=== PATIENT | female | born 1955 | race African-American/Black ===

== ENCOUNTER 2023-12-14 20:37 | Emergency (ER) | payer BC, MEDICAID ==
[~2023-12-14] VITALS: Ht 162.6 cm; Wt 53.0 kg
[2023-12-14] MEDS: ASPIRIN 325MG EC TABLET PO ONE
[2023-12-14 20:40] VITALS: BP 135/93; PULSE 66; RESP 18; TEMP 98.9; O2SAT 95
[2023-12-14] MEDS: FUROSEMIDE 40MG/4ML VIAL IVP ONE (23:15)
[2023-12-14 23:44] LABS: BASOPHILS % 0.4 % (0.0-2.0); EOSINOPHILS % 2.6 % (0.0-5.0); HEMATOCRIT. 41.6 % (36.0-48.0); HEMOGLOBIN. 13.8 g/dL (12.0-16.0); LYMPHOCYTES % 20.6 % (20.0-50.0); MEAN CORPUSCULAR HEMOGLOBIN 32.4 pg (28.0-32.0); MEAN CORPUSCULAR HGB CONC 33.2 g/dL (31.0-37.0); MEAN CORPUSCULAR VOLUME 97.5 fL (81.0-99.0); MEAN PLATELET VOLUME 7.5 fl (7.4-10.4); MONOCYTES % 9.2 % (2.0-8.0); NEUTROPHILS % 67.2 % (40.0-76.0); PLATELET 365 x1000/uL (130-400); RED BLOOD CELL COUNT 4.27 mill/uL (4.2-5.4); RED CELL DISTRIBUTION WIDTH 15.1 % (11.6-14.6)
[2023-12-14 23:50] LABS: POTASSIUM 4.4 mEq/L (3.5-5.1)
[2023-12-14 23:56] LABS: CREATININE 1.5 mg/dL (0.6-1.0)
[2023-12-15 01:04] LABS: TROPONIN I HIGH SENSITIVITY 7 ng/L (3.0-34)
[2023-12-15] MEDS ORDERED: P50 MT (02:15)
[2023-12-15] MEDS ORDERED: ALBU90AE INH (02:15)
[2023-12-15] MEDS ORDERED: TOPUD MT (02:15)
[2023-12-15] MEDS ORDERED: DEXT30SU17 MT (02:15)
[2023-12-15] MEDS: ACETAMINOPHEN 325MG TABLET PO ONE (02:29)
[2023-12-15] MEDS: IPRATROPIUM/ALBUTEROL 0.5-3(2.5)MG/3ML NEB HHN ONE (02:30)
[2023-12-15] MEDS: PREDNISONE 20MG TABLET PO ONE (03:05)
[2023-12-17] MEDS ORDERED: HYDR25TA MT (11:13)
[2023-12-17] MEDS ORDERED: ASPI-1497 MT (11:13)
[2023-12-17] MEDS ORDERED: OMEP20CA14 MT (11:14)
== END 2023-12-15 03:14 | disposition home or self-care (01) ==
LOC: ER 20:37
DX: I11.0 Hypertensive heart disease with heart failure (principal); I50.9 Heart failure, unspecified; E11.9 Type 2 diabetes mellitus without complications; J44.1 Chronic obstructive pulmonary disease with (acute) exacerbation; Z88.0 Allergy status to penicillin; Z79.899 Other long term (current) drug therapy
CPT/HCPCS: 99285; 71045; 80048; 83880; 85025; 36415 ×2; 93005; 84484; J7512; J1940

== ENCOUNTER 2025-01-15 15:27 | Emergency (ER) | payer BC, MEDICAID ==
[~2025-01-15] VITALS: Ht 165.1 cm; Wt 55.0 kg
[~2025-01-15 15:27] MED LIST: ALBU90AE INH; ASPI-1497 MT; HYDR25TA MT; OMEP20CA14 MT; TOPUD MT
[2025-01-15 15:28] VITALS: O2SAT 95
[2025-01-15] MEDS: ACETAZOLAMIDE 500MG ER CAPSULE PO ONE (17:43)
[2025-01-15] MEDS: BRIMONIDINE 0.2% OPHTH DROPS 5ML RIGHTEYE ONE (17:43)
[2025-01-15] MEDS: TIMOLOL MALEATE 0.5% OPHTH DROPS 5ML RIGHTEYE SCH (17:43)
[2025-01-15] MEDS: TETRACAINE 0.5% OPHTH DROPS 4ML RIGHTEYE ONE (17:43)
[2025-01-15] MEDS: PILOCARPINE HCL 4% OPHTH DROPS 15ML RIGHTEYE SCH (17:43)
[2025-01-15] MEDS: TRAMADOL 50MG TABLET PO ONE (17:47)
[2025-01-15] MEDS ORDERED: HYDR-4001 MT (19:23)
[2025-01-15] MEDS: KETOROLAC 30MG/ML VIAL IM ONE (19:34)
[2025-01-15 19:38] VITALS: BP 137/82; PULSE 77; RESP 18; TEMP 37.3; O2SAT 96
== END 2025-01-15 19:39 | disposition home or self-care (01) ==
LOC: ER 15:27
DX: H40.211 Acute angle-closure glaucoma, right eye (principal); E11.9 Type 2 diabetes mellitus without complications; I50.9 Heart failure, unspecified; Z79.899 Other long term (current) drug therapy; Z88.0 Allergy status to penicillin
CPT/HCPCS: 99284; 96372; J1885